=== PATIENT | male | born 1985 | race Caucasian/White ===

== ENCOUNTER 2019-02-28 13:11 | Outpatient (CLI) | payer OTHER ==
--- NOTE | 2019-02-28 15:05 | XRAY Report ---
Reason: BACK PAIN,LUMBAR Procedure Date: 02/28/2019 Accession Number: [id number] / [id number] Procedure: XR - Lumbar Spine Complete CPT Code: FULL RESULT: EXAM: LUMBOSACRAL SPINE RADIOGRAPHY EXAM DATE: 02/28/2019 02:12 PM. CLINICAL HISTORY: Lumbar back pain. COMPARISONS: None. TECHNIQUE: 3 views. FINDINGS: Alignment: Normal. No spondylolisthesis or scoliosis. Bones: Five [id number] lumbar vertebral bodies are present. No fractures or bone lesions. Disks: Degenerative disk space narrowing with mild circumferential osteophyte at L5-S1. Facets: No degenerative changes. Pars appear intact. Sacroiliac Joints: Unremarkable. Soft Tissues: There is a 4 cm long linear radiodensity resembling a fish bone which superimposes in the expected location of the transverse colon. IMPRESSION: 1. Normal lumbar spine radiography. 2. Probable ingested fishbone superimposing over the transverse colon region. RADIA
== END 2019-02-28 13:12 | disposition home or self-care (01) ==
LOC: DI 13:11
PROVIDERS: ATTEND Physician Assistant Medical
DX: M51.37 Other intervertebral disc degeneration, lumbosacral region (principal)
CPT/HCPCS: 72110

== ENCOUNTER 2021-08-23 08:00 | Outpatient (CLI) | payer OTHER ==
--- NOTE | 2021-08-23 19:34 | XRAY Report ---
PROCEDURE: Cervical Spine 2 View INDICATIONS: NECK PAIN TECHNIQUE: 4 view(s) of the cervical spine were acquired. COMPARISON: None. FINDINGS: Bones: No fractures or dislocations to the C7-T1 level. Straightening and mild reversal of normal ce rvical lordosis is seen. Mild degenerative endplate changes at C4-5 and C5-6 levels are noted. The l ateral masses of C1 appear intact on the odontoid view. No suspicious bony lesions. Soft tissues: No prevertebral soft tissue swelling. IMPRESSION: Very mild degenerative endplate changes at C4-5 and C5-6 levels. No fracture or dislocat ion. Straightening of normal cervical lordosis. Reviewed by: Ricardo Maldonado MD on 08/23/2021 7:32 PM PDT Approved by: Ricardo Maldonado MD on 08/23/2021 7:32 PM PDT Station ID: [id number]
== END 2021-08-23 23:59 | disposition home or self-care (01) ==
LOC: DI.S 08:00
PROVIDERS: ATTEND Nurse Practitioner
DX: M47.812 Spondylosis without myelopathy or radiculopathy, cervical region (principal)